=== PATIENT | female | born 1975 | race Two or more races ===

== ENCOUNTER 2018-07-15 16:07 | Emergency (ER) | payer MEDICARE ==
[~2018-07-15] VITALS: Ht 157.5 cm; Wt 57.2 kg
[2018-07-15 16:52] LABS: PREGNANCY TEST, URINE NEGATIVE (NEGATIVE)
[2018-07-15 16:54] LABS: CLARITY,URINE CLEAR (CLEAR); COLOR,URINE YELLOW (YELLOW)
[2018-07-15 16:55] LABS: KETONES,URINE NEGATIVE (NEGATIVE); LEUKOCYTE ESTERASE ,URINE NEGATIVE (NEGATIVE); NITRITE,URINE NEGATIVE (NEGATIVE); PROTEIN,URINE DIPSTICK NEGATIVE (NEGATIVE)
[2018-07-15 16:56] LABS: BILIRUBIN,URINE NEGATIVE (NEGATIVE); URINE UROBILINOGEN 0.2 mg/dL (0.2 - 1)
[2018-07-15] MEDS ORDERED: SODIUM CHLORIDE 0.9% 1000ML 1,000 ML IV STA (16:56)
[2018-07-15 17:09] LABS: BACTERIA,URINE FEW /HPF; EPITHELIAL CELLS,URINE FEW /LPF; RBC,URINE 0-5 /HPF (0-5); WBC,URINE (MAN) 0-5 /HPF (0-5)
[2018-07-15] MEDS ORDERED: ONDANSETRON HCL INJ 2 MG/ML VIAL IV ONE (17:30)
[2018-07-15 17:31] LABS: BASOPHILS # (AUTO) 0.1 (0.0-0.1); BASOPHILS % 0.7 % (0.0-1.0); EOSINOPHILS # (AUTO) 0.1 (0.0-0.4); EOSINOPHILS % 1.6 % (0.0-6.0); HEMATOCRIT 38.9 % (34.2-44.1); HEMOGLOBIN 12.5 g/dL (12.0-16.0); LYMPHOCYTES # (AUTO) 3.4 (1.0-3.2); LYMPHOCYTES % 38.2 % (18.0-39.1); MEAN CORPUSCULAR HEMOGLOBIN 26.7 pg (28-32); MEAN CORPUSCULAR HGB CONC 32.1 g/dL (31-35); MEAN CORPUSCULAR VOLUME 83.1 fL (81-99); MONOCYTES # (AUTO) 0.5 (0.2-0.8); MONOCYTES % 5.9 % (4.4-11.3); NEUTROPHILS # (AUTO) 4.8 (2.1-6.9); NEUTROPHILS % 53.4 % (38.7-80.0); PLATELET COUNT 215 x10e3/uL (140-360); RED BLOOD COUNT 4.68 x10e6/uL (3.6-5.1); RED CELL DISTRIBUTION WIDTH 14.9 % (11.7-14.4)
[2018-07-15 17:36] LABS: INR 1.04; PROTHROMBIN TIME 12.8 seconds (11.9-14.5)
[2018-07-15 17:37] LABS: PARTIAL THROMBOPLASTIN TIME 27.5 seconds (23.8-35.5)
[2018-07-15 17:44] LABS: ALANINE AMINOTRANSFERASE 19 IU/L (0-55); ALBUMIN 4.4 g/dL (3.5-5.0); ALBUMIN/GLOBULIN RATIO 1.1 (0.8-2.0); ALKALINE PHOSPHATASE 46 IU/L (40-150); ANION GAP 18.7 mmol/L (8-16); BLOOD UREA NITROGEN 10 mg/dL (7-26); BUN/CREATININE RATIO 12 (6-25); CALCIUM 10.9 mg/dL (8.4-10.2); CARBON DIOXIDE 21 mmol/L (22-29); CHLORIDE 103 mmol/L (98-107); CREATINE KINASE 75 IU/L (29-168); CREATININE, SERUM 0.86 mg/dL (0.57-1.11); EST GLOMERULAR FILTRATION RATE > 60 ML/MIN (60-); GLUCOSE 93 mg/dL (74-118); LIPASE 28 U/L (8-78); MAGNESIUM 1.9 MG/DL (1.3-2.1); POTASSIUM 3.7 mmol/L (3.5-5.1); SODIUM 139 mmol/L (136-145)
[2018-07-15] MEDS ORDERED: SODIUM CHLORIDE 0.9% 50ML 50 ML ONE (18:04)
[2018-07-15] MEDS ORDERED: IOPAMIDOL 370 MG/ML 200 ML INFUS..BTL INJ ONE (18:04)
--- NOTE | 2018-07-15 18:53 | Diagnostic Imaging Report ---
EXAM: CT Abdomen and Pelvis WITH contrast INDICATION: \S\RLQ ABD PAIN COMPARISON: None. TECHNIQUE: Abdomen and pelvis were scanned utilizing a multidetector helical scanner from the lung base to the pubic symphysis after administration of IV contrast. Coronal and sagittal reformations were obtained. Routine protocol was performed. Scan was performed when during portal venous phase. IV CONTRAST: 100 mL of Isovue 370 ORAL CONTRAST: Water COMPLICATIONS: None RADIATION DOSE: Total DLP: 178.56 mGy*cm Estimated effective dose: (DLP x 0.015 x size factor) mSv CTDIvol has been reviewed. It is below the limits set by the Radiation Protocol Committee (RPC). FINDINGS: LINES and TUBES: None. LOWER THORAX: Unremarkable HEPATOBILIARY: No focal hepatic lesions. No biliary ductal dilation. GALLBLADDER: There are stones in the gallbladder. No wall thickening. SPLEEN: No splenomegaly. PANCREAS: No focal masses or ductal dilatation. ADRENALS: No adrenal nodules KIDNEYS/URETERS: Kidneys enhance symmetrically. No hydronephrosis. No cystic or solid mass lesions. No stones. GI TRACT: No abnormal distention, wall thickening, or evidence of bowel obstruction. Appendix is normal. PELVIC ORGANS/BLADDER: Endometrial stripe is mildly thickened measuring 1.3 cm. There are internal hyperdensity. 2.9 cm right adnexal/ovarian cyst. Nabothian cysts. LYMPH NODES: No lymphadenopathy. VESSELS: Unremarkable. PERITONEUM / RETROPERITONEUM: No free air or fluid. BONES: Unremarkable. SOFT TISSUES: Unremarkable. IMPRESSION: 1. Mildly thickened endometrial stripe with internal hyperdensity. Recommend further evaluation with pelvic ultrasound. 2. Normal appendix. Signed by: Dr. Pancho Jo M.D. on 07/15/2018 6:49 PM
[2018-07-15 19:24] VITALS: BP 121/80
== END 2018-07-15 19:48 | disposition home or self-care (01) ==
LOC: ER 16:07
DX: R10.31 Right lower quadrant pain (principal); R11.2 Nausea with vomiting, unspecified; D64.9 Anemia, unspecified
CPT/HCPCS: 36415; 74177; 80053; 81001; 81025; 82550; 82553; 83690; 83735; 84484; 85025; 85610; 85730; 99284; J2405; J7030; Q9967

== ENCOUNTER 2020-02-05 23:08 | Observation (INO) | payer MEDICARE, OTHER ==
[~2020-02-05] VITALS: Ht 157.5 cm; Wt 63.5 kg
--- OUTSIDE RECORDS SUMMARY | 2020-02-05 23:11 | XMS REPORT ---
[facility] Address Unknown Phone Unavailable Care Team Providers Care Senior Principal Architect Name Role Phone Donnie ANDREWS Unavailable Unavailable Problems This patient has no known problems. Allergies, Adverse Reactions, Alerts This patient has no known allergies or adverse reactions. Medications This patient has no known medications. Results Test Description Test Time Test Comments Text Results Atomic Results Result Comments CT ABDOMEN/PELVIS W 2018-07-15 18:43:00 [place] [address] Patient Name: JANA CLARKE MR #: [id number] : 1975 Age/Sex: 43/F Req #: [id number] [facility] Physician: Ordered by: MONROE ANDREWS MD Report #: [id number] Location: ER Room/Bed: Procedure: [id number] CT/CT ABDOMEN/PELVIS W Exam Date: Exam Time: REPORT STATUS: Signed EXAM: CT Abdomen and Pelvis WITH contrast INDICATION: S RLQ ABD PAIN COMPARISON: None. TECHNIQUE: Abdomen and pelvis were scanned utilizing a multidetector helical scanner from the lung base to the pubic symphysis after administration of IV contrast. Coronal and sagittal reformations were obtained. Routine protocol was performed. Scan was performed when during portal venous phase. IV CONTRAST: 100 mL of Isovue 370 ORAL CONTRAST: Water COMPLICATIONS: None RADIATION DOSE: Total DLP: 178.56 mGy*cm Estimated effective dose: (DLP x 0.015 x size factor) mSv CTDIvol has been reviewed. It is below the limits set by the Radiation Protocol Committee (RPC). FINDINGS: LINES and TUBES: None. LOWER THORAX: Unremarkable HEPATOBILIARY: No focal hepatic le sions. No biliary ductal dilation. GALLBLADDER: There are stones in the gallbladder. No wall thickening. SPLEEN: No splenomegaly. PANCREAS: No focal masses or ductal dilatation. ADRENALS: No adrenal nodules KIDNEYS/URETERS: Kidneys enhance symmetrically. No hydronephrosis. No cystic or solid mass lesions. No stones. GI TRACT: No abnormal distention, wall thickening, or evidence of bowel obstruction. Appendix is normal. PELVIC ORGANS/BLADDER: Endometrial stripe is mildly thickened measuring 1.3 cm. There are internal hyperdensity. 2.9 cm right adnexal/ovarian cyst. Nabothian cysts. LYMPH NODES: No lymphadenopathy. VESSELS: Unremarkable. PERITONEUM / RETROPERITONEUM: No free air or fluid. BONES: Unremarkable. SOFT TISSUES: Unremarkable. IMPRESSION: 1. Mildly thickened endometrial stripe with internal hyperdensity. Recommend further evaluation with pelvic ultrasound. 2. Normal appendix. Signed by: Dr. Vik Jo M.D. on 07/15/2018 6:49 PM Dictated By: VIK JO MD 48 Transcribed By: ADEEL on 07/15/181848 COPY TO: MONROE ANDREWS MD
[2020-02-05] MEDS ORDERED: SODIUM CHLORIDE 0.9% 1000ML 1,000 ML IV STA (23:22)
[2020-02-06] VITALS (7 sets, daily range): BP systolic 115–126; BP diastolic 64–80
[2020-02-06 00:19] LABS: BASOPHILS % 0.5 % (0.0-1.0); EOSINOPHILS # (AUTO) 0.1 (0.0-0.4); EOSINOPHILS % 1.6 % (0.0-6.0); HEMATOCRIT 30.5 % (34.2-44.1); HEMOGLOBIN 8.2 g/dL (12.0-16.0); MEAN CORPUSCULAR HEMOGLOBIN 17.7 pg (28-32); MEAN CORPUSCULAR HGB CONC 26.9 g/dL (31-35); MONOCYTES # (AUTO) 0.6 (0.2-0.8); MONOCYTES % 7.6 % (4.4-11.3); NEUTROPHILS # (AUTO) 4.2 (2.1-6.9); PLATELET COUNT 305 x10e3/uL (140-360); RED BLOOD COUNT 4.62 x10e6/uL (3.6-5.1); RED CELL DISTRIBUTION WIDTH 20.4 % (11.7-14.4)
[2020-02-06 00:31] LABS: INR 0.89; PROTHROMBIN TIME 12.6 seconds (11.9-14.5)
[2020-02-06 00:41] LABS: ALANINE AMINOTRANSFERASE 294 IU/L (0-55); ALBUMIN 4.4 g/dL (3.5-5.0); ALBUMIN/GLOBULIN RATIO 1.3 (0.8-2.0); ALKALINE PHOSPHATASE 124 IU/L (40-150); ANION GAP 15.2 mmol/L (8-16); BLOOD UREA NITROGEN 16 mg/dL (7-26); BUN/CREATININE RATIO 17 (6-25); CALCIUM 9.6 mg/dL (8.4-10.2); CARBON DIOXIDE 24 mmol/L (22-29); CHLORIDE 104 mmol/L (98-107); CREATINE KINASE 89 IU/L (29-168); CREATININE, SERUM 0.92 mg/dL (0.57-1.11); EST GLOMERULAR FILTRATION RATE > 60 ML/MIN (60-); GLUCOSE 103 mg/dL (74-118); POTASSIUM 4.2 mmol/L (3.5-5.1); SODIUM 139 mmol/L (136-145)
[2020-02-06 00:46] LABS: BILIRUBIN,URINE NEGATIVE (NEGATIVE); CLARITY,URINE CLEAR (CLEAR); COLOR,URINE YELLOW (YELLOW); KETONES,URINE NEGATIVE (NEGATIVE); LEUKOCYTE ESTERASE ,URINE NEGATIVE (NEGATIVE); NITRITE,URINE NEGATIVE (NEGATIVE); PROTEIN,URINE DIPSTICK NEGATIVE (NEGATIVE); URINE UROBILINOGEN 0.2 mg/dL (0.2 - 1)
[2020-02-06] MEDS ORDERED: SODIUM CHLORIDE 0.9% 50ML 50 ML ONE ×2 (00:55→11:43)
[2020-02-06] MEDS: MORPHINE SULFATE INJ 4 MG/ML INJ 1ML IV SCH ×4 (00:55→18:00)
[2020-02-06] MEDS ORDERED: IOPAMIDOL 370 MG/ML 200 ML INFUS..BTL INJ ONE (00:56)
[2020-02-06] MEDS ORDERED: FAMOTIDINE 20 MG TAB PO ONE (01:00)
[2020-02-06 01:16] LABS: BACTERIA,URINE FEW /HPF; EPITHELIAL CELLS,URINE FEW /LPF; RBC,URINE 0-5 /HPF (0-5)
[2020-02-06 01:17] LABS: RENAL EPITHELIAL CELLS,URINE RARE; TRANSITIONAL EPI CELLS,URINE FEW
--- NOTE | 2020-02-06 01:42 | Diagnostic Imaging Report ---
EXAMINATION: CHEST SINGLE (PORTABLE) INDICATION: Epigastric pain. COMPARISON: None FINDINGS: TUBES and LINES: None. LUNGS: Lungs are moderately inflated with vascular crowding. There is no evidence of pneumonia or pulmonary edema. PLEURA: No pleural effusion or pneumothorax. HEART AND MEDIASTINUM: The cardiomediastinal silhouette is unremarkable. BONES AND SOFT TISSUES: No acute osseous lesion. Soft tissues are unremarkable. UPPER ABDOMEN: No free air under the diaphragm. IMPRESSION: No acute thoracic abnormality. Signed by: Dr. Juan Diego MD on 02/06/2020 1:39 AM
--- NOTE | 2020-02-06 01:51 | Diagnostic Imaging Report ---
EXAM: CT Abdomen and Pelvis WITH contrast INDICATION: Abdominal Pain, anemia. COMPARISON: CT abdomen/pelvis 07/15/2018. TECHNIQUE: Abdomen and pelvis were scanned utilizing a multidetector helical scanner from the lung base to the pubic symphysis after administration of IV contrast. Coronal and sagittal reformations were obtained. Routine protocol was performed. Scan was performed when during portal venous phase. IV CONTRAST: 100 cc of Isovue-370. ORAL CONTRAST: None COMPLICATIONS: None RADIATION DOSE: Total DLP: 183.7 mGy*cm Estimated effective dose: (DLP x 0.015 x size factor) mSv CTDIvol has been reviewed. It is below the limits set by the Radiation Protocol Committee (RPC). FINDINGS: LINES and TUBES: None. LOWER THORAX: Patchy dependent atelectasis. HEPATOBILIARY: Diffuse mild hepatic steatosis No evidence of focal lesion. No biliary ductal dilation. GALLBLADDER: Cholelithiasis without evidence of cholecystitis. SPLEEN: No splenomegaly. PANCREAS: No focal masses or ductal dilatation. ADRENALS: No adrenal nodules KIDNEYS/URETERS: Kidneys enhance symmetrically. No evidence of hydronephrosis, solid mass, or stone. GI TRACT: No evidence of bowel obstruction. Possible mild wall thickening with the distal stomach. Appendix is normal. Moderate amount of stool in the colon. PELVIC ORGANS/BLADDER: Unremarkable. LYMPH NODES: No lymphadenopathy. VESSELS: Unremarkable. PERITONEUM / RETROPERITONEUM: No free air or fluid. BONES AND SOFT TISSUES: Unremarkable. CONCLUSION: Diffuse mild hepatic steatosis. Cholelithiasis without evidence of cholecystitis. Possible mild wall thickening in the distal stomach, which may represent gastritis in the appropriate clinical setting. Signed by: Dr. Juan Diego MD on 02/06/2020 1:47 AM
[2020-02-06] MEDS ORDERED: ONDANSETRON HCL INJ 2MG/ML 2ML 2 MG/ML VIAL IV STA (02:08)
[2020-02-06] MEDS ORDERED: ONDANSETRON HCL INJ 2MG/ML 2ML 2 MG/ML VIAL IV PRN (02:15)
[2020-02-06] MEDS ORDERED: MORPHINE SULFATE INJ 4 MG/ML INJ 1ML IV PRN (02:15)
[2020-02-06 09:48] LABS: BASOPHILS # (AUTO) 0.1 (0.0-0.1); EOSINOPHILS # (AUTO) 0.1 (0.0-0.4); HEMATOCRIT 28.5 % (34.2-44.1); HEMOGLOBIN 7.8 g/dL (12.0-16.0); LYMPHOCYTES # (AUTO) 2.2 (1.0-3.2); MEAN CORPUSCULAR HEMOGLOBIN 18.1 pg (28-32); MEAN CORPUSCULAR HGB CONC 27.4 g/dL (31-35); MEAN CORPUSCULAR VOLUME 66.1 fL (81-99); MONOCYTES # (AUTO) 0.4 (0.2-0.8); NEUTROPHILS # (AUTO) 4.6 (2.1-6.9); PLATELET COUNT 377 x10e3/uL (140-360); RED BLOOD COUNT 4.31 x10e6/uL (3.6-5.1); RED CELL DISTRIBUTION WIDTH 19.2 % (11.7-14.4)
[2020-02-06] MEDS: SODIUM CHLORIDE 0.9% 1000ML 1,000 ML IV SCH ×3 (09:50→18:42)
--- NOTE | 2020-02-06 09:50 | NUR ---
RIGHT AC IV 20G PATENT WITH NS AT 125ML/HR
[2020-02-06 10:05] LABS: ALANINE AMINOTRANSFERASE 230 IU/L (0-55); ALBUMIN/GLOBULIN RATIO 1.1 (0.8-2.0); ALKALINE PHOSPHATASE 110 IU/L (40-150); BLOOD UREA NITROGEN 11 mg/dL (7-26); BUN/CREATININE RATIO 13 (6-25); CALCIUM 9.1 mg/dL (8.4-10.2); CARBON DIOXIDE 22 mmol/L (22-29); CHLORIDE 104 mmol/L (98-107); CREATININE, SERUM 0.82 mg/dL (0.57-1.11); EST GLOMERULAR FILTRATION RATE > 60 ML/MIN (60-); GLUCOSE 100 mg/dL (74-118); SODIUM 136 mmol/L (136-145)
[2020-02-06 10:47] LABS: EOSINOPHILS % (MANUAL) 2 % (0-7); LYMPHOCYTES % (MANUAL) 25 % (19-48); MONOCYTES % (MANUAL) 1 % (3.4-9.0); NEUTROPHILS % (MANUAL) 69 % (40-74)
[2020-02-06 10:48] LABS: ANISOCYTOSIS MODERATE; MICROCYTOSIS SLIGHT
[2020-02-06 10:49] LABS: HYPOCHROMASIA SLIGHT; PLATELET ESTIMATE ADEQUATE; PLATELET MORPHOLOGY COMMENT NORMAL; RBC MORPHOLOGY COMMENT NORMAL
[2020-02-06 10:51] LABS: FERRITIN 7.34 ng/mL (4.63-204.00)
[2020-02-06] MEDS ORDERED: GADOBENATE DIMEGLUMINE 1 ML IV ONE (11:43)
--- NOTE | 2020-02-06 14:37 | Diagnostic Imaging Report ---
TECHNIQUE: MRI of the abdomen and MRCP WITHOUT and WITH intravenous contrast. 3-D volume reconstructions were obtained to evaluate the biliary ductal system. INDICATION: ^ABN LIVER ENZYMES ^Y. COMPARISON: CT from earlier today. FINDINGS: ABSENCE OF INTRAVENOUS CONTRAST DECREASES SENSITIVITY FOR DETECTION OF FOCAL LESIONS AND VASCULAR PATHOLOGY. LOWER THORAX: Unremarkable. LIVER: No hepatic signal abnormality. No focal hepatic lesions. BILIARY: A gallstone measures 2.5 cm. No gallbladder distention. There is mild gallbladder wall edema. No biliary ductal dilatation or filling defect. The common bile duct measures 0.4 cm in diameter. SPLEEN: No splenomegaly. PANCREAS: No focal masses or ductal dilatation. ADRENALS: No adrenal nodules. KIDNEYS/URETERS: No hydronephrosis or solid mass lesions. PERITONEUM/RETROPERITONEUM: No free fluid. LYMPH NODES: No lymphadenopathy. VESSELS: Unremarkable. GI TRACT: No distention or wall thickening. BONES AND SOFT TISSUES: Unremarkable. IMPRESSION: 1. No distention of the common bile duct or choledocholithiasis. 2. There is cholelithiasis without gallbladder distention to suggest acute cholecystitis. The mild gallbladder wall edema is nonspecific but could be due to chronic cholecystitis in the appropriate clinical setting Signed by: Richard Malcolm JR, MD on 02/06/2020 2:33 PM
[2020-02-06] MEDS ORDERED: PEG (High)/E-LYTE SOLN 4,000 ML BTL PO NR (16:00)
--- NOTE | 2020-02-06 16:11 | Diagnostic Imaging Report ---
EXAM: US ABDOMEN COMPLETE DATE: 02/06/2020 12:00 AM INDICATION: Acute kidney injury COMPARISON: CT abdomen and pelvis of 02/06/2020 TECHNIQUE: Transverse and longitudinal mrach scale and color doppler sonographic images of the upper abdomen were obtained. FINDINGS: LIVER 12.7 cm in the right midclavicular line. Increased echogenicity of the liver with normal contour, no masses. SPLEEN 6.6 cm in maximum diameter. Normal echogenicity, no masses. GALLBLADDER Cholelithiasis of the decompressed gallbladder. No pericholecystic fluid. Negative reported sonographic Fowler's sign. The gallbladder wall measures 2mm BILE DUCTS No intra nor extra-hepatic biliary dilation. Common bile duct measures 3mm PANCREAS: Visualized portions are normal. RIGHT KIDNEY: 9.1 cm Echogenicity: Normal Collecting System: No hydronephrosis Stones: None Cyst/Mass: None LEFT KIDNEY: 10.1 cm Echogenicity: Normal Collecting System: No hydronephrosis Stones: None Cyst/Mass: None VESSELS: Aorta: Visualized portions are within normal size limits Inferior Vena Cava: Visualized portions are normal Main Portal Vein: 0.9 cm, normal size with hepatopetal flow. FREE FLUID: None IMPRESSION: Cholelithiasis without sonographic evidence of cholecystitis. Diffuse hepatic steatosis. No renal calculi or hydronephrosis. Signed by: Michelle Jones MD on 02/06/2020 4:07 PM
--- NOTE | 2020-02-06 19:20 | NUR ---
Patient visited in room during nursing rounds. Patient alert and oriented x3. Ambulatory in room prn. Patient drinking golytely (bowel prep) per Dr. Ab Voss order. Plan for pt to have EGD and Colonoscopy tomorrow. Pt wishes to talk to Dr. Ab Voss during rounds about procedures tonight. Informed pt Dr. Voss will come tonight. On IVF (NS at 125ml/hr). Call lozada within reach. Will monitor pt closely.
--- NOTE | 2020-02-06 21:30 | NUR ---
Dr. Ab Voss came and visited pt in room. MD explained plan of care to patient and plan for EGD and Colonoscopy tomorrow. MD aware pt cannot tolerate to finish other half of a gallon of golytely. MD stated will just give pt nausea medicine and Dulcolax 20mg x3 tonight. MD aware pt having frequent loose stools as planned. Pt agreed to the procedures and willing to sign consent form.
[2020-02-06] MEDS: ONDANSETRON HCL INJ 2MG/ML 2ML 2 MG/ML VIAL IV PRN (22:45)
[2020-02-06] MEDS: IRON SUCROSE 100 MG in SODIUM CHLORIDE 0.9% 100 ML 100 ML IV SCH (22:50)
[2020-02-06] MEDS ORDERED: BISACODYL 5 MG TAB EC PO ONE ×2 (23:00→23:30)
[2020-02-07] VITALS (9 sets, daily range): BP systolic 113–135; BP diastolic 68–90
[2020-02-07] MEDS ORDERED: BISACODYL 5 MG TAB EC PO ONE
[2020-02-07] MEDS: SODIUM CHLORIDE 0.9% 1000ML 1,000 ML IV SCH ×4 (03:28→22:45)
[2020-02-07] MEDS: ONDANSETRON HCL INJ 2MG/ML 2ML 2 MG/ML VIAL IV PRN (03:45)
--- NOTE | 2020-02-07 03:55 | NUR ---
Patient nauseated and vomiting. Pt just given Zofran 8mg IV at 0345. Pt stated she feels her throat is burning. Pt encouraged to sit up in bed at this time. V/S taken: BP = 130/90, HR = 90, T= 96.9.
--- NOTE | 2020-02-07 04:24 | NUR ---
Paged Dr. Ab Voss for possible medication orders since patient still feels some chills all over her body and some burning sensation on her throat. Awaiting on MD call back.
[2020-02-07] MEDS: MORPHINE SULFATE INJ 4 MG/ML INJ 1ML IV SCH ×5 (05:53→23:38)
--- NOTE | 2020-02-07 06:07 | NUR ---
Dr. Mickey Voss called back and reported to him that patient was having some chills, generalized body aches, weakness and dizziness and burning on throat. MD aware and ordered to give patient x1 dose of 500ml bolus NS STAT.
[2020-02-07 06:14] LABS: BASOPHILS % 0.2 % (0.0-1.0); EOSINOPHILS % 0.3 % (0.0-6.0); HEMATOCRIT 27.2 % (34.2-44.1); HEMOGLOBIN 7.5 g/dL (12.0-16.0); LYMPHOCYTES # (AUTO) 0.5 (1.0-3.2); LYMPHOCYTES % 4.9 % (18.0-39.1); MEAN CORPUSCULAR HEMOGLOBIN 18.4 pg (28-32); MEAN CORPUSCULAR HGB CONC 27.6 g/dL (31-35); MEAN CORPUSCULAR VOLUME 66.7 fL (81-99); MONOCYTES # (AUTO) 0.2 (0.2-0.8); MONOCYTES % 1.5 % (4.4-11.3); NEUTROPHILS # (AUTO) 10.1 (2.1-6.9); NEUTROPHILS % 92.7 % (38.7-80.0); PLATELET COUNT 343 x10e3/uL (140-360); RED BLOOD COUNT 4.08 x10e6/uL (3.6-5.1); RED CELL DISTRIBUTION WIDTH 19.5 % (11.7-14.4)
[2020-02-07] MEDS ORDERED: SODIUM CHLORIDE 0.9% 500ML 500 ML IV ONE (06:15)
[2020-02-07] MEDS ORDERED: SODIUM CHLORIDE 0.9% 500ML 0 ML ONE (06:17)
[2020-02-07 06:37] LABS: ALANINE AMINOTRANSFERASE 158 IU/L (0-55); ALBUMIN/GLOBULIN RATIO 1.1 (0.8-2.0); ALKALINE PHOSPHATASE 104 IU/L (40-150); ANION GAP 12.6 mmol/L (8-16); BLOOD UREA NITROGEN 9 mg/dL (7-26); BUN/CREATININE RATIO 11 (6-25); CALCIUM 8.8 mg/dL (8.4-10.2); CARBON DIOXIDE 24 mmol/L (22-29); CHLORIDE 107 mmol/L (98-107); CREATININE, SERUM 0.83 mg/dL (0.57-1.11); EST GLOMERULAR FILTRATION RATE > 60 ML/MIN (60-); GLUCOSE 111 mg/dL (74-118); POTASSIUM 3.6 mmol/L (3.5-5.1); SODIUM 140 mmol/L (136-145)
[2020-02-07 08:55] LABS: ANISOCYTOSIS MODERATE; HYPOCHROMASIA SLIGHT; MICROCYTOSIS MODERATE; PLATELET ESTIMATE ADEQUATE; PLATELET MORPHOLOGY COMMENT NORMAL; POLYCHROMASIA FEW; RBC MORPHOLOGY COMMENT ABNORMAL
[2020-02-07 08:56] LABS: POIKILOCYTOSIS SLIGHT
--- NOTE | 2020-02-07 09:30 | Progress Note ---
DATE: 02/07/2020 SUBJECTIVE: Ms. Saeed is a 44-year-old female, who denies any prior medical history, came in complaining of epigastric pain and nausea. The liver enzymes were found to be elevated. She had also gallstone MRCP showing E coli. No cholelithiasis or cholecystitis. She was seen by Dr. Mickey Voss and she is going to go apparently for EGD and colonoscopy today. PHYSICAL EXAMINATION: GENERAL: Today, she is awake and alert. She is feeling better. VITAL SIGNS: Temperature is 99.8, blood pressure 126/73. HEART: Regular rate. LUNGS: Clear to auscultation. ABDOMEN: Soft. LABORATORY DATA: On the blood work, white count 10.91, hemoglobin 7.5, hematocrit 27.2. Potassium 3.6, creatinine 0.83. Liver enzymes slowly going down. Urine, 11-20 white blood cells. Hepatitis profile came back negative. MRCP showed cholelithiasis, but no choledocholithiasis and no cholecystitis. ASSESSMENT: 1. Elevated liver enzymes slowly going down. 2. Epigastric pain with nausea. 3. Cholelithiasis with no cholecystitis. 4. Reflux. 5. Iron deficiency anemia. PLAN: At present time, the patient is going to go for EGD and colonoscopy. Today, we will follow her and decide further treatment depending on the results. All these were discussed with the patient. All questions were answered to satisfaction. MD ALVAREZ Lambert/SERA /[id number]
--- NOTE | 2020-02-07 10:45 | NUR ---
Pt. expressed no spiritual or emotional concerns at this time. Dicer Machine Operator provided hospitality and information on how to reach organizational research consultant, if needed. No need to follow at this time. ALICE ALLRED Dicer Machine Operator Spiritual Care Department O: [phone]
--- NOTE | 2020-02-07 12:16 | NUR ---
PATIENT TRANSFERRED FROM UNIT AT 1216 TO OR VIA TRANSPORT STAFF FOR SCHEDULED PROCEDURE. NO DISTRESS NOTED. PATIENT AAOX3. ACYANOTIC.
--- NOTE | 2020-02-07 12:17 | NUR ---
PATIENT'S SPOUSE, CHANDLER CLARKE INFORMED OF PATIENT LEAVING UNIT FOR SCHEDULED PROCEDURE PER PATIENT REQUEST
--- NOTE | 2020-02-07 14:48 | NUR ---
ARRIVED TO UNIT AT APPROXIMATELY 1435. PATIENT RESTING IN BED. AWAKE AND ALERT. ACYANOTIC. NO DISTRESS NOTED.
[2020-02-07] MEDS ORDERED: GLUCAGON FOR INJ 1 MG VIAL ONE (16:27)
[2020-02-07] MEDS ORDERED: GLYCOPYRROLATE INJ 0.2 MG/ML VIAL ONE (16:27)
[2020-02-07] MEDS ORDERED: PROPOFOL IV EMULSION 10 MG/ML 50 ML VIAL ONE (16:27)
--- NOTE | 2020-02-07 16:54 | NUR ---
Nutrition Intervention Note RD Recommendation(s) for Physician: -Continue current diet as ordered -Ensure clear BID for added nutrition Plan of Care: RD following, monitoring for tolerance and adequacy Nutrition reason for involvement: Nutrition Risk Trigger MST 4 RD Assessment (02/07/20). Pt is a 44 year old female admitted with epigastric pain, anemia, and transaminitis. RD spoke to pt yesterday in which she was on a clear liquid diet. Pt mentioned she was tolerating liquids. Pt reports she was consuming <50% of her meals over the past year prior due to pain, but has not lost any weight. Pt mentioned she usually weighs 129 lbs. Pt was interested in Ensure clear for added nutrition. Pt had a colonoscopy with EGD today and is now on a GI soft diet. No N/V/D/C or chewing/swallowing issues reported. Will continue to monitor Principal Problems/Diagnoses: epigastric pain, anemia, and transaminitis. PMH: none I/O: 6498/250 GI: flat, soft, nontender abdomen Skin: intact Labs: 02/06 AST 59, ALT 158 Meds: Zofran, IV iron Ht: 62 inches Wt: 129 lbs BMI: 23.6 kg/m2 IBW: 110 lbs Malnutrition Evaluation (02/07/20) The patient does not meet criteria for a specified degree of malnutrition at this time. Will re-evaluate at follow-up as appropriate. Nutrition Prescription (Diet Order): GI soft diet Estimated Nutritional Needs: 7473-3569 calories/day (25-35 kcal/kg CBW) 59 88 g protein/day (1-1.5 g pro/kg CBW) Diet Adequacy: Not meeting calorie needs, Not meeting protein needs Tolerance: Tolerating PO Diet Education Needs Assessment: RD is available for diet education as needed Nutrition Care Level: low Nutrition Diagnosis: Inadequate energy intake related to decreased ability to consume sufficient energy secondary to pain as evidenced by pt eating <50% of meals. Goal: Patient will meet 75-100% of estimated needs by follow up Progress: N/A Interventions: -fiber-modified diet, Commercial beverage Monitoring/Evaluation: -Total energy intake, Total protein intake, Modified diet, Liquid supplement, Weight change Signed: Bisi Alonzo RD, YENNY
[2020-02-07] MEDS ORDERED: FENTANYL CITRATE/PF 100MCG/2 ML INJ ONE (17:36)
[2020-02-07] MEDS ORDERED: MIDAZOLAM HCL 5MG/ML 2ML VIAL ONE (17:36)
--- NOTE | 2020-02-07 17:57 | Operative Report ---
DATE OF PROCEDURE: 02/06/2020 SURGEON: Mickey Voss MD PROCEDURES: EGD with polypectomy esophageal dilatation and biopsies and colonoscopy. INDICATIONS FOR EGD: Dysphagia to solids, heartburn indigestion. INDICATIONS FOR COLONOSCOPY: Iron deficiency anemia, mother with colon cancer, personal history of colon polyps. MEDICATIONS: The patient was done under MAC, please see anesthesiologist's note. PROCEDURE IN DETAIL: With the patient in left lateral decubitus position, a flexible fiberoptic Olympus gastroscope was introduced into the esophagus under direct visualization without any difficulty. There was some patchy erythema noted in distal esophagus. There was a mild stricture noted at the GE junction, that was dilated to size 52-Romanian Jaffe. The scope was then advanced with ease into the stomach and mucosa overlying the antrum and the body revealed some patchy erythema and [id number] edema, and biopsies were obtained and sent to stain for H. pylori. The pylorus was of normal contour and shape, it was intubated with ease and the scope was advanced all the way to the second portion of the duodenum. Biopsies were obtained from the proximal second portion and duodenal bulb to rule out sprue. The scope was then withdrawn back into the stomach and retroflexed, and a minute polyp was noted in the fundus of the stomach that was removed per cold biopsy forceps. The scope was then straightened out, it was subsequently withdrawn. The patient tolerated the procedure well. IMPRESSION: 1. Distal esophagitis, mild. 2. Esophagus dilated to size 52-Romanian Jaffe. 3. Gastritis, biopsied, biopsies sent to stain for H. pylori. 4. Fundal polyp, minute, removed per cold biopsy forceps. 5. Rule out sprue. PLAN: 1. Follow up histology. 2. Initiate Protonix 40 mg one p.o. q.a.m. a.c. DESCRIPTION OF PROCEDURE: The patient was then turned around after adequate lubrication of the anal canal, a flexible fiberoptic Olympus colonoscope was inserted into the rectum with ease and advanced all the way to the cecum. It was then withdrawn slowly and mucosa overlying the cecum, ascending colon, transverse, descending, sigmoid, and rectum appeared to be within normal limits. The scope was then retroflexed into the distal rectum. Small internal hemorrhoids were noted, none of which was actively bleeding. The scope was then straightened out, it was subsequently withdrawn. The patient tolerated the procedure well. IMPRESSION: Internal hemorrhoids, none actively bleeding. PLAN: 1. Initiate high-fiber low-fat diet. 2. Initiate high-fiber supplement. 3. We will need a capsule endoscopy. 4. The patient might benefit from a followup colonoscopy in 5 years. MD VIOLET Finch/MODL /[id number] cc: Elizabeth Bae MD
--- NOTE | 2020-02-07 19:25 | NUR ---
Patient visited in room during nursing rounds. Patient alert and oriented x3. Ambulatory in room prn. Pt denies any pain or discomfort at this time. On IVF (NS at 125ml/hr). S/P EGD and Colonoscopy today. Call lozada within reach. Will monitor pt closely.
[2020-02-07] MEDS: IRON SUCROSE 100 MG in SODIUM CHLORIDE 0.9% 100 ML 100 ML IV SCH (22:45)
[2020-02-08] VITALS (8 sets, daily range): BP systolic 116–155; BP diastolic 65–84
[2020-02-08] MEDS: MORPHINE SULFATE INJ 4 MG/ML INJ 1ML IV SCH ×3 (05:52→18:00)
--- NOTE | 2020-02-08 07:06 | NUR ---
bedside shift report received from PM nurse. pt awake, alert, oriented X3, IV patent, no signs of distress. no complaints at this time.
[2020-02-08] MEDS: SODIUM CHLORIDE 0.9% 1000ML 1,000 ML IV SCH ×2 (08:20→18:03)
[2020-02-08 09:35] LABS: BASOPHILS # (AUTO) 0.1 (0.0-0.1); EOSINOPHILS # (AUTO) 0.2 (0.0-0.4); HEMATOCRIT 26.1 % (34.2-44.1); HEMOGLOBIN 7.1 g/dL (12.0-16.0); LYMPHOCYTES # (AUTO) 1.8 (1.0-3.2); MEAN CORPUSCULAR HEMOGLOBIN 18.3 pg (28-32); MEAN CORPUSCULAR HGB CONC 27.2 g/dL (31-35); MEAN CORPUSCULAR VOLUME 67.1 fL (81-99); MONOCYTES # (AUTO) 0.4 (0.2-0.8); NEUTROPHILS # (AUTO) 5.8 (2.1-6.9); PLATELET COUNT 322 x10e3/uL (140-360); RED BLOOD COUNT 3.89 x10e6/uL (3.6-5.1); RED CELL DISTRIBUTION WIDTH 19.9 % (11.7-14.4)
--- NOTE | 2020-02-08 09:48 | Progress Note ---
DATE: 02/08/2020 SUBJECTIVE: Ms. Saeed is a 44-year-old female, who denies any prior medical history, came to the emergency room complaining of epigastric pain, nausea, elevated liver enzymes. Hepatitis profile negative. She was found to have gallstones with possible chronic cholecystitis. She had an iron deficiency anemia, so she had EGD and a colonoscopy done yesterday. PHYSICAL EXAMINATION: GENERAL: Today, she is awake and alert. She is receiving IV iron. She is feeling a little better. VITAL SIGNS: Temperature is 97.7, blood pressure is 128/66. HEART: Regular rate. LUNGS: Clear to auscultation. ABDOMEN: Soft. LABORATORY DATA: On the blood work, white count is 10.91, hemoglobin 7.5, hematocrit 27.2, potassium 3.6, creatinine 0.83. Hepatitis profile came back negative. MRCP shows cholelithiasis, no choledocholithiasis, but she has signs that could be due to chronic cholecystitis. ASSESSMENT: 1. Epigastric pain with nausea. 2. Elevated liver enzymes. 3. Probably chronic cholecystitis. 4. Iron deficiency anemia. 5. Gastritis and esophagitis. 6. Reflux. PLAN: At present time is to start the patient on Protonix 40 mg p.o. daily. EGD shows gastritis and esophagitis. Colonoscopy, she has some hemorrhoids. An MRCP probably chronic cholecystitis. The plan at present time is also get a surgical consult with Dr. Turk to see if the patient needs a cholecystectomy prior to discharge. All these were discussed with the patient. All questions were answered to satisfaction. MD ALVAREZ Lambert/SERA /[id number]
[2020-02-08 09:54] LABS: ALANINE AMINOTRANSFERASE 109 IU/L (0-55); ALBUMIN 3.7 g/dL (3.5-5.0); ALBUMIN/GLOBULIN RATIO 1.1 (0.8-2.0); ALKALINE PHOSPHATASE 81 IU/L (40-150); ANION GAP 8.2 mmol/L (8-16); BLOOD UREA NITROGEN 5 mg/dL (7-26); BUN/CREATININE RATIO 6 (6-25); CALCIUM 8.5 mg/dL (8.4-10.2); CARBON DIOXIDE 24 mmol/L (22-29); CHLORIDE 110 mmol/L (98-107); CREATININE, SERUM 0.81 mg/dL (0.57-1.11); EST GLOMERULAR FILTRATION RATE > 60 ML/MIN (60-); GLUCOSE 145 mg/dL (74-118); POTASSIUM 3.2 mmol/L (3.5-5.1); SODIUM 139 mmol/L (136-145)
[2020-02-08] MEDS: PANTOPRAZOLE SOD 40 MG TABEC PO SCH ×2 (09:55→18:02)
--- NOTE | 2020-02-08 11:29 | Consultation ---
DATE OF CONSULTATION: 02/08/2020 HISTORY OF PRESENT ILLNESS: The patient is a 44-year-old female, who presents with complaints of epigastric abdominal pain. She says the pain was severe, lasted for hours, radiated to her back. She has had similar pains in the past but not this severe. She says she gets the pain a couple of times a week. She has some associated nausea. Workup has revealed gallstones with mildly abnormal liver function tests. MRCP did not reveal any common bile duct stones. PAST MEDICAL HISTORY: Otherwise, unremarkable. She has no chronic medical problems, though she has been found to be anemic, but endoscopy during this hospitalization did not reveal source of anemia. She had previous section x2. There were no home medications. ALLERGIES: NO KNOWN ALLERGIES. FAMILY HISTORY: Noncontributory. SOCIAL HISTORY: The patient does not smoke cigarettes or drink alcohol. REVIEW OF SYSTEMS: As stated above, otherwise was negative. PHYSICAL EXAMINATION: GENERAL: The patient is awake and alert, in no distress. VITAL SIGNS: At this time are normal. HEENT: Sclerae is not icteric. NECK: Has no masses. LUNGS: Equal breath sounds are clear bilaterally. CARDIAC: Regular rate and rhythm with no murmur. ABDOMEN: Soft. There is mild epigastric tenderness. There is no mass. There were no signs of peritonitis. EXTREMITIES: Have no edema. Pulses are palpable. NEUROLOGIC: Intact. LABORATORY DATA: White blood cell count today is 8.3, yesterday was 11,000, hemoglobin 7.1, hematocrit 26.1, which has been stable. Platelet count is normal. Chemistries; AST and ALT are mildly elevated, but bilirubin, alkaline phosphatase are normal. ASSESSMENT: A 44-year-old female with acute on chronic cholecystitis, cholelithiasis. She will benefit from cholecystectomy, which I am planning to schedule for tomorrow, says she is not n.p.o. today. Procedure was explained to the patient including risks, benefits and alternatives, she understands. She has had the opportunity to ask questions. She also has anemia, which likely is due to blood loss from heavy menstrual periods as the patient says these were heavy up until a few months ago. The patient is aware of the possible need for open surgery. Thank you for asking me to see Ms. Saeed. Arnel W MD ESTUARDO Turk/SERA /[id number]
--- NOTE | 2020-02-08 19:27 | NUR ---
Received report from SOO Aguilar; Pt. A & 0 x 3; 20G to right AC patent and infusing without redness or swelling to note; Will continue to monitor.
[2020-02-08] MEDS: IRON SUCROSE 100 MG in SODIUM CHLORIDE 0.9% 100 ML 100 ML IV SCH (22:05)
--- NOTE | 2020-02-08 23:06 | NUR ---
Dr. Ab Voss here to see patient. Received orders to draw celiac panel in the morning.
[2020-02-09] VITALS (8 sets, daily range): BP systolic 112–151; BP diastolic 77–86
--- NOTE | 2020-02-09 01:41 | NUR ---
pt. remains in stable condition without complaint of nausea and only minimal pain reported; pt. showered and in bed at this time; VSS; Will continue to monitor.
[2020-02-09] MEDS: SODIUM CHLORIDE 0.9% 1000ML 1,000 ML IV SCH ×4 (03:40→21:47)
[2020-02-09] MEDS: MORPHINE SULFATE INJ 4 MG/ML INJ 1ML IV SCH ×4 (03:45→17:16)
--- NOTE | 2020-02-09 07:17 | NUR ---
Pt. in stable condition; Report given to SOO Booker
[2020-02-09] MEDS ORDERED: BUPIVACAINE HCL 0.5% INJ 30 ML VIAL INJ ONE (07:20)
--- NOTE | 2020-02-09 07:26 | NUR ---
Spoke with pre-op ad they will be picking the pt. up for surgery within 20 minutes for lap cholecystectomy.
[2020-02-09] MEDS ORDERED: CEFAZOLIN SOD 1 GM/NS 50ML 100 ML IV ONE (07:59)
[2020-02-09] MEDS ORDERED: HYDROCODONE/APAP 5MG-325MG TAB PO PRN (09:00)
[2020-02-09] MEDS ORDERED: MORPHINE SULFATE INJ 4 MG/ML INJ 1ML IV PRN (09:00)
[2020-02-09] MEDS ORDERED: ACETAMINOPHEN 325 MG TAB PO PRN (09:00)
[2020-02-09] MEDS ORDERED: ONDANSETRON HCL INJ 2MG/ML 2ML 2 MG/ML VIAL IV PRN ×2 (09:00→09:15)
--- NOTE | 2020-02-09 09:28 | Operative Report ---
DATE OF PROCEDURE: 02/09/2020 SURGEON: Arnel Turk MD PREOPERATIVE DIAGNOSES: [id number] cholecystitis and cholelithiasis. POSTOPERATIVE DIAGNOSES: [id number] cholecystitis and cholelithiasis. PROCEDURES: Diagnostic laparoscopy, laparoscopic cholecystectomy. RISK MANAGEMENT PROFESSIONAL: None. ANESTHESIA: General endotracheal. INDICATIONS AND FINDINGS: The patient is a 44-year-old female, who has had episodes of epigastric abdominal pain off and on for a long time. She had severe pain, was admitted to the hospital. Surgery based on the gallbladder was distended with stone impacting the gallbladder neck. Cystic duct was about 3 mm in diameter. Common bile duct was about 6 mm in diameter. Liver, stomach, and lower abdomen all appeared normal. TECHNIQUE: After adequate general endotracheal anesthesia, the patient in supine position, the abdomen was prepped and draped in sterile fashion with ChloraPrep solution. Skin in the umbilicus was infiltrated with 0.5% Marcaine. Incision was made in the umbilicus. Abdominal wall was elevated and Veress needle was introduced. Pneumoperitoneum was then created. A 10 mm trocar and cannula was then passed through the umbilical wound. Laparoscopic camera was introduced. Initial laparoscopy revealed the gallbladder to be distended. Liver, stomach, and lower abdomen all appeared normal. A 10 mm trocar and cannula was placed in epigastrium and two 5 mm trocars and cannulas were placed in the right upper quadrant. These were placed under direct vision. Fundus of the gallbladder was grasped, retracted superiorly. There were adhesions over the neck and fundus of the gallbladder involving omentum and duodenum. These were lysed staying close to the gallbladder. Peritoneum over the neck of the gallbladder was incised. The gallbladder and cystic duct junction were dissected free. Cystic artery was also dissected free. The neck of the gallbladder was completely dissected free. Cystic artery was divided between hemoclips close to the gallbladder. Cystic duct was also divided between hemoclips with three clips being left on the common bile duct side. The gallbladder was dissected free from the liver using scissors and electrocautery. Once it was entirely free, it was placed into an Endopouch and brought through the epigastric cannula. There were multiple stones. Gallbladder bed was inspected for hemostasis, which was seen to be adequate. It was irrigated with saline. All fluid aspirated and inspected once again for hemostasis, which was seen to be adequate. Instruments and cannulas were removed. Pneumoperitoneum was evacuated. Wounds were then closed. Fascia in the umbilical and epigastric wound closed with 0 Vicryl. Skin to all wounds was closed with andrea. Sterile dressings were applied to each wound. The patient tolerated the procedure well. Estimated blood loss was 10 mL. There were no complications. All counts were correct. The patient was taken to the recovery room in satisfactory condition. Arnel Turk MD DWG/MODL /[id number] cc: MD Elizabeth Finch MD
[2020-02-09] MEDS: PANTOPRAZOLE SOD 40 MG TABEC PO SCH ×2 (09:59→17:16)
--- NOTE | 2020-02-09 10:01 | NUR ---
The pt. returned from surgery vis stretcher awake and alert . See v/s graphic for return vs. She was provided breakfast and iv fluids cont for the immediate future. There is no c/o pain currently.
[2020-02-09] MEDS ORDERED: ONDANSETRON HCL 4 MG ORAL DISINTEGRATING TAB PO PRN (14:15)
[2020-02-09] MEDS ORDERED: PROPOFOL IV EMULSION 10 MG/ML 50 ML VIAL ONE (17:19)
[2020-02-09] MEDS ORDERED: LIDOCAINE HCL 2% LOCAL INJ 5 ML SDV VIAL INJ ONE (17:19)
[2020-02-09] MEDS ORDERED: PROPOFOL IV EMULSION 10 MG/ML 20 ML VIAL ONE (17:19)
[2020-02-09] MEDS ORDERED: KETOROLAC TROMETHAMINE 30 MG/ML VIAL ONE (17:19)
[2020-02-09] MEDS ORDERED: ROCURONIUM BROMIDE 10 MG/ML 5ML VIAL IV ONE (17:19)
[2020-02-09] MEDS ORDERED: GLYCOPYRROLATE INJ 0.2 MG/ML VIAL ONE (17:19)
[2020-02-09] MEDS ORDERED: NEOSTIGMINE 1 MG/ML 10ML VIAL ONE (17:19)
[2020-02-09] MEDS ORDERED: SEVOFLURANE INHAL SOLN 250 ML PEN BTL ONE (17:19)
[2020-02-09] MEDS ORDERED: ONDANSETRON HCL INJ 2MG/ML 2ML 2 MG/ML VIAL ONE (17:19)
[2020-02-09] MEDS ORDERED: DEXAMETHASONE SOD PHOS INJ 4 MG/ML VIAL ONE (17:19)
[2020-02-09] MEDS ORDERED: ATROPINE SULFATE 1 MG/ML VIAL ONE (17:19)
[2020-02-09] MEDS ORDERED: GLUCAGON FOR INJ 1 MG VIAL ONE (17:19)
[2020-02-09] MEDS ORDERED: FENTANYL CITRATE/PF 100MCG/2 ML INJ ONE (17:42)
[2020-02-09] MEDS ORDERED: MIDAZOLAM HCL 2 MG/2 ML VIAL ONE (17:42)
--- NOTE | 2020-02-09 20:00 | NUR ---
Received change of shift report from AM nurse. Walking rounds completed.
[2020-02-09] MEDS: IRON SUCROSE 100 MG in SODIUM CHLORIDE 0.9% 100 ML 100 ML IV SCH (21:40)
[2020-02-10] VITALS: BP 128/76
--- NOTE | 2020-02-10 | NUR ---
Patient AAOx3. Up to BR without asst. Denies pain at this time. Refused schul. pain meds. Dr Voss on the floor to see patient. No new orders written at this time. Continue monitor.
[2020-02-10 04:00] VITALS: BP 149/78
[2020-02-10] MEDS: MORPHINE SULFATE INJ 4 MG/ML INJ 1ML IV SCH ×3 (05:37→12:00)
[2020-02-10 08:00] VITALS: BP 136/89
[2020-02-10] MEDS ORDERED: CHLORASEPTIC SPRAY 177 ML BTL MM PRN (08:45)
[2020-02-10 08:59] VITALS: BP 136/89
[2020-02-10] MEDS: PANTOPRAZOLE SOD 40 MG TABEC PO SCH (09:25)
[2020-02-10] MEDS: SODIUM CHLORIDE 0.9% 1000ML 1,000 ML IV SCH (10:10)
[2020-02-10 12:12] VITALS: BP 138/77
--- NOTE | 2020-02-10 14:08 | NUR ---
Pt discharged home at this time. Pt is aox4 at time of discharge, 0 s/s of acute distress noted at time of discharge. Pt education provided over cholecystectomy after care. Pt verbalized understanding of all discharge instructions. Pt verbalized understanding of all follow up appointments.
[2020-02-13 05:08] LABS: ENDOMYSIAL ANTIBODIES, IGA Negative (Negative)
== END 2020-02-10 14:08 | disposition home or self-care (01) ==
LOC: ER 23:08 → ERHOLD 02-06 02:10 → MED/SURG3 02-06 03:30
PROVIDERS: ADMIT Internal Medicine; ATTEND Internal Medicine
DX: K20.9 Esophagitis, unspecified (principal); R13.10 Dysphagia, unspecified; K21.9 Gastro-esophageal reflux disease without esophagitis; D50.9 Iron deficiency anemia, unspecified; E78.5 Hyperlipidemia, unspecified; K29.70 Gastritis, unspecified, without bleeding; K64.8 Other hemorrhoids; K31.7 Polyp of stomach and duodenum; Z80.0 Family history of malignant neoplasm of digestive organs; Z86.010 Personal history of colon polyps; K80.12 Calculus of gallbladder with acute and chronic cholecystitis without obstruction
CPT/HCPCS: 36415 ×3; 43239; 43248; 43250; 47562; 71045; 74177; 74183; 76700; 80053 ×3; 81001; 81025; 82550; 82553; 82607; 82728; 82746; 82784; 83516; 83540; 83880; 84466; 84484; 85007 ×2; 85025 ×2; 85027 ×2; 85045; 85610; 86256; 86850; 86900; 88304; 88305; 88312; 93005; 99284; A9577; G0378 ×5; J0461; J0690; J1100; J1610 ×2; J1756 ×4; J1885; J2001; J2250 ×2; J2270; J2405 ×3; J2704 ×3; J2710; J3010 ×2; J7030 ×5; J7040; Q9967; S0164 ×3; 45378

== ENCOUNTER 2021-06-09 18:43 | Emergency (ER) | payer MEDICARE, OTHER ==
[~2021-06-09] VITALS: Ht 157.5 cm; Wt 56.7 kg
[2021-06-09] MEDS ORDERED: KETOROLAC TROMETHAMINE 30 MG/ML VIAL IM STA (19:13)
== END 2021-06-09 21:28 | disposition home or self-care (01) ==
LOC: ER 19:16
DX: M25.512 Pain in left shoulder (principal); M79.662 Pain in left lower leg; V43.62XA Car passenger injured in collision with other type car in traffic accident, initial encounter; Y92.488 Other paved roadways as the place of occurrence of the external cause; I10 Essential (primary) hypertension; D64.9 Anemia, unspecified
CPT/HCPCS: 73030; 73502; 73562; 73590; 73610; 81025; 99283; J1885

== ENCOUNTER 2021-07-07 07:46 | Emergency (ER) | payer MEDICARE ==
[~2021-07-07] VITALS: Ht 157.5 cm; Wt 56.7 kg
[2021-07-07] MEDS ORDERED: ACETAMINOPHEN 325 MG TAB PO ONE (08:00)
[2021-07-07] MEDS ORDERED: KETOROLAC TROMETHAMINE 60 MG/2 ML VIAL IM ONE (08:00)
[2021-07-07] MEDS ORDERED: IBUPROFEN600 MG PO (08:24)
[2021-07-07] MEDS ORDERED: METHOCARBAMOL750 MG PO (08:24)
== END 2021-07-07 10:15 | disposition home or self-care (01) ==
LOC: ER 07:48
DX: M54.5 Low back pain (principal)
CPT/HCPCS: 72100; 72220; 81025; 99283; J1885

== ENCOUNTER 2021-07-13 03:18 | Emergency (ER) | payer MEDICARE, OTHER ==
[~2021-07-13] VITALS: Ht 157.5 cm; Wt 56.7 kg
[~2021-07-13 03:18] MED LIST: IBUPROFEN600 MG PO; METHOCARBAMOL750 MG PO
[2021-07-13 03:45] LABS: BASOPHILS # (AUTO) 0.1 (0.0-0.1); BASOPHILS % 0.8 % (0.0-1.0); EOSINOPHILS # (AUTO) 0.2 (0.0-0.4); EOSINOPHILS % 2.9 % (0.0-6.0); HEMATOCRIT 36.5 % (34.2-44.1); HEMOGLOBIN 11.4 g/dL (12.0-16.0); LYMPHOCYTES # (AUTO) 4.2 (1.0-3.2); LYMPHOCYTES % 54.2 % (18.0-39.1); MEAN CORPUSCULAR HEMOGLOBIN 27.7 pg (28-32); MEAN CORPUSCULAR HGB CONC 31.2 g/dL (31-35); MEAN CORPUSCULAR VOLUME 88.6 fL (81-99); MONOCYTES # (AUTO) 0.5 (0.2-0.8); MONOCYTES % 6.5 % (4.4-11.3); NEUTROPHILS # (AUTO) 2.7 (2.1-6.9); NEUTROPHILS % 35.5 % (38.7-80.0); PLATELET COUNT 289 x10e3/uL (140-360); RED BLOOD COUNT 4.12 x10e6/uL (3.6-5.1); RED CELL DISTRIBUTION WIDTH 12.6 % (11.7-14.4)
== END 2021-07-13 05:33 | disposition home or self-care (01) ==
LOC: ER 03:32
DX: N92.0 Excessive and frequent menstruation with regular cycle (principal); I10 Essential (primary) hypertension; D64.9 Anemia, unspecified
CPT/HCPCS: 36415; 85025; 99282

== ENCOUNTER 2022-05-05 09:09 | Emergency (ER) | payer MEDICARE ==
[~2022-05-05] VITALS: Ht 157.5 cm; Wt 56.7 kg
[2022-05-05] MEDS ORDERED: SODIUM CHLORIDE 0.9% 1000ML 1,000 ML IV STA (09:34)
[2022-05-05 09:42] LABS: BASOPHILS # (AUTO) 0.1 (0.0-0.1); EOSINOPHILS # (AUTO) 0.2 (0.0-0.4); EOSINOPHILS % 2.1 % (0.0-6.0); HEMATOCRIT 36.4 % (34.2-44.1); HEMOGLOBIN 10.5 g/dL (12.0-16.0); LYMPHOCYTES # (AUTO) 3.2 (1.0-3.2); LYMPHOCYTES % 38.8 % (18.0-39.1); MEAN CORPUSCULAR HEMOGLOBIN 21.4 pg (28-32); MEAN CORPUSCULAR HGB CONC 28.8 g/dL (31-35); MEAN CORPUSCULAR VOLUME 74.1 fL (81-99); MONOCYTES # (AUTO) 0.5 (0.2-0.8); MONOCYTES % 5.8 % (4.4-11.3); NEUTROPHILS # (AUTO) 4.2 (2.1-6.9); NEUTROPHILS % 52.1 % (38.7-80.0); PLATELET COUNT 362 x10e3/uL (140-360); RED BLOOD COUNT 4.91 x10e6/uL (3.6-5.1); RED CELL DISTRIBUTION WIDTH 21.9 % (11.7-14.4)
[2022-05-05 10:01] LABS: ALANINE AMINOTRANSFERASE 21 IU/L (0-55); ALBUMIN 3.8 g/dL (3.5-5.0); ALBUMIN/GLOBULIN RATIO 0.8 (0.8-2.0); ALKALINE PHOSPHATASE 43 IU/L (40-150); ANION GAP 16.1 mmol/L (8-16); BLOOD UREA NITROGEN 10 mg/dL (7-26); BUN/CREATININE RATIO 13 (6-25); CALCIUM 8.9 mg/dL (8.4-10.2); CARBON DIOXIDE 22 mmol/L (22-29); CHLORIDE 106 mmol/L (98-107); CREATINE KINASE 32 IU/L (29-168); CREATININE, SERUM 0.77 mg/dL (0.57-1.11); GLUCOSE 103 mg/dL (74-118); MAGNESIUM 2.2 MG/DL (1.3-2.1); POTASSIUM 4.1 mmol/L (3.5-5.1); SODIUM 140 mmol/L (136-145)
[2022-05-05 10:23] LABS: CLARITY,URINE CLEAR (CLEAR); COLOR,URINE YELLOW (YELLOW); KETONES,URINE NEGATIVE (NEGATIVE); LEUKOCYTE ESTERASE ,URINE NEGATIVE (NEGATIVE); NITRITE,URINE NEGATIVE (NEGATIVE); PROTEIN,URINE DIPSTICK NEGATIVE (NEGATIVE); URINE UROBILINOGEN 0.2 mg/dL (0.2 - 1)
[2022-05-05 10:25] LABS: BACTERIA,URINE RARE /HPF; EPITHELIAL CELLS,URINE MANY /LPF
[2022-05-05 10:26] LABS: RBC,URINE 0-5 /HPF (0-5); WBC,URINE (MAN) 0-5 /HPF (0-5)
[2022-05-05 10:52] LABS: ANISOCYTOSIS MODERATE; OVALOCYTES FEW; PLATELET ESTIMATE ADEQUATE; PLATELET MORPHOLOGY COMMENT NORMAL; RBC MORPHOLOGY COMMENT ABNORMAL
[2022-05-05 10:53] LABS: HYPOCHROMASIA SLIGHT; MICROCYTOSIS MODERATE
[2022-05-05 12:05] VITALS: BP 115/58
== END 2022-05-05 12:07 | disposition home or self-care (01) ==
LOC: ER 09:20
DX: R42 Dizziness and giddiness (principal); D64.9 Anemia, unspecified; I10 Essential (primary) hypertension
CPT/HCPCS: 36415; 80053; 81001; 82550; 82553; 83735; 84484; 84702; 85025; 93005; 99284; J7030